=== PATIENT | female | born 1935 | race Caucasian/White ===

== ENCOUNTER → 2017-05-02 | Outpatient (CLI) | payer MEDICARE ==
--- NOTE | 2017-05-02 11:10 | XR ---
EXAMINATION TYPE: XR knee complete RT DATE OF EXAM: 05/02/2017 CLINICAL HISTORY: pain TECHNIQUE: Three views of the right knee are obtained. COMPARISON: None. FINDINGS: There is no acute fracture/dislocation. The tri-compartment joint spaces appear severely narrowed. Meniscal chondral calcinosis noted. Associated spurring. The overlying soft tissue appears unremarkable. IMPRESSION: There is no acute fracture or dislocation.ICD 10 NO FRACTURE, INITIAL EVALUATION
== END | disposition home or self-care (01) ==
LOC: RADXRMAIN 10:38
PROVIDERS: ATTEND Family Medicine
DX: M25.561 Pain in right knee (principal)

== ENCOUNTER 2017-08-31 14:20 | Inpatient (IN) | payer MEDICARE ==
[2017-08-31] MEDS ORDERED: SODIUM CHLORIDE 0.9% 500 ML IV STA (15:02)
--- NOTE | 2017-08-31 15:12 | ED ---
General Adult HPI - General Chief complaint: Arrhythmia/Palpitations Stated complaint: Chest fluttering Time Seen by Provider: 08/31/17 14:30 Source: patient, RN notes reviewed Mode of arrival: wheelchair Limitations: no limitations - History of Present Illness Initial comments: This is an 82-year-old female presents emergency Department with a rapid heart rate. Patient states she's had that before and had some ablation but she doesn' t know what the rhythm was called. Patient states today it was racing so fast she started never had feel like that in the past. Patient denies any chest pain or difficulty breathing or shortness of breath. Patient denies any recent fever chills or cough. Patient denies any excessive intake of caffeine. Patient denies any abdominal pain patient denies nausea vomiting diarrhea. Patient denies headache patient denies numbness weakness. Patient denies any lightheadedness or dizziness. - Related Data Home Medications Medication Instructions Recorded Confirmed Aspirin EC [Ecotrin] 81 mg PO HS 03/09/15 08/31/17 Atorvastatin [Lipitor] 10 mg PO HS 03/09/15 08/31/17 Metoprolol Tartrate 25 mg PO BID 03/09/15 08/31/17 Multivitamin/Iron/Folic Acid 1 tab PO DAILY 03/09/15 08/31/17 [Centrum Complete Multivit Tab] Garlic 1 tab PO DAILY 08/31/17 08/31/17 Allergies Allergy/AdvReac Type Severity Reaction Status Date / Time iodine Allergy Unknown FACE Verified 08/31/17 15:04 SWELLING , RED AND HOT. adhesive tape Allergy Rash/Hives Verified 08/31/17 15:04 Review of Systems ROS Statement: Those systems with pertinent positive or pertinent negative responses have been documented in the HPI. ROS Other: All systems not noted in ROS Statement are negative. Past Medical History Past Medical History: Hyperlipidemia, Hypertension Additional Past Medical History / Comment(s): [place] History of Any Multi-Drug Resistant Organisms: None Reported Past Surgical History: Section, Heart Catheterization With Stent Past Psychological History: No Psychological Hx Reported Smoking Status: Never smoker Past Alcohol Use History: None Reported Past Drug Use History: None Reported General Exam - General Exam Comments Initial Comments: GENERAL: Patient is well-developed and well-nourished. Patient is nontoxic and well- hydrated and is in mild distress. ENT: Neck is soft and supple. No significant lymphadenopathy is noted. Oropharynx is clear. Moist mucous membranes. Neck has full range of motion without eliciting any pain. EYES: The sclera were anicteric and conjunctiva were pink and moist. Extraocular movements were intact and pupils were equal round and reactive to light. Eyelids were unremarkable. PULMONARY: Unlabored respirations. Good breath sounds bilaterally. No audible rales rhonchi or wheezing was noted. CARDIOVASCULAR: Patient's heart rate is tachycardic at about 140 beats a minute and it is irregular ABDOMEN: Soft and nontender with normal bowel sounds. No palpable organomegaly was noted. There is no palpable pulsatile mass. SKIN: Skin is clear with no lesions or rashes and otherwise unremarkable. NEUROLOGIC: Patient is alert and oriented x3. Cranial nerves II through XII are grossly intact. Motor and sensory are also intact. Normal speech, volume and content. Symmetrical smile. MUSCULOSKELETAL: Normal extremities with adequate strength and full range of motion. No lower extremity swelling or edema. No calf tenderness. LYMPHATICS: No significant lymphadenopathy is noted PSYCHIATRIC: Normal psychiatric evaluation. Normal interpersonal interactions appears functionally intact in deals appropriately with others. No signs of depression. No signs of anxiety. Limitations: no limitations Course Vital Signs 08/31/17 14:30 Temperature 97.8 F Pulse Rate 128 H Respiratory 18 Rate Blood Pressure 136/92 O2 Sat by Pulse 99 Oximetry Medical Decision Making - Medical Decision Making EKG shows atrial fibrillation with rapid ventricular response at 119 bpm QRS is 80 QT interval 308 QTC is 433. Patient told me when I initially interviewed her she did not want any blood thinners. Patient is under the impression of blood thinners will potentially kill her. Patient's chest x-ray shows no acute abnormality. I started the patient on Cardizem at 5 mg drip to slow her heart rate down. I spoke with Dr. Nash and admitted the patient and consult to cardiology continued the Cardizem drip on the floor. - Lab Data Result diagrams: 08/31/17 14:49 08/31/17 14:49 Lab Results 08/31/17 08/31/17 08/31/17 Range/Units 14:49 14:49 14:49 WBC 6.3 (3.8-10.6) k/uL RBC 4.77 (3.80-5.40) m/uL Hgb 14.2 (11.4-16.0) gm/dL Hct 42.3 (34.0-46.0) % MCV 88.8 (80.0-100.0) fL MCH 29.8 (25.0-35.0) pg MCHC 33.6 (31.0-37.0) g/dL RDW 12.8 (11.5-15.5) % Plt Count 242 (150-450) k/uL Neutrophils % 61 % Lymphocytes % 30 % Monocytes % 6 % Eosinophils % 1 % Basophils % 0 % Neutrophils # 3.9 (1.3-7.7) k/uL Lymphocytes # 1.9 (1.0-4.8) k/uL Monocytes # 0.4 (0-1.0) k/uL Eosinophils # 0.0 (0-0.7) k/uL Basophils # 0.0 (0-0.2) k/uL PT (9.0-12.0) sec INR (<1.2) APTT (22.0-30.0) sec Sodium 138 (137-145) mmol/L Potassium 4.9 (3.5-5.1) mmol/L Chloride 101 (98-107) mmol/L Carbon Dioxide 26 (22-30) mmol/L Anion Gap 11 mmol/L BUN 8 (7-17) mg/dL Creatinine 0.67 (0.52-1.04) mg/dL Est GFR (CKD-EPI)AfAm >90 (>60 ml/min/1.73 sqM) Est GFR (CKD-EPI)NonAf 83 (>60 ml/min/1.73 sqM) Glucose 88 (74-99) mg/dL Calcium 9.5 (8.4-10.2) mg/dL Magnesium 2.0 (1.6-2.3) mg/dL Total Bilirubin 0.6 (0.2-1.3) mg/dL AST 31 (14-36) U/L ALT 32 (9-52) U/L Alkaline Phosphatase 140 H (38-126) U/L Total Creatine Kinase 71 (30-135) U/L CK-MB (CK-2) 2.1 (0.0-2.4) ng/mL CK-MB (CK-2) Rel Index 3.0 Troponin I <0.012 (0.000-0.034) ng/mL Total Protein 6.6 (6.3-8.2) g/dL Albumin 3.9 (3.5-5.0) g/dL 08/31/17 Range/Units 14:49 WBC (3.8-10.6) k/uL RBC (3.80-5.40) m/uL Hgb (11.4-16.0) gm/dL Hct (34.0-46.0) % MCV (80.0-100.0) fL MCH (25.0-35.0) pg MCHC (31.0-37.0) g/dL RDW (11.5-15.5) % Plt Count (150-450) k/uL Neutrophils % % Lymphocytes % % Monocytes % % Eosinophils % % Basophils % % Neutrophils # (1.3-7.7) k/uL Lymphocytes # (1.0-4.8) k/uL Monocytes # (0-1.0) k/uL Eosinophils # (0-0.7) k/uL Basophils # (0-0.2) k/uL PT 10.3 (9.0-12.0) sec INR 1.1 (<1.2) APTT 22.3 (22.0-30.0) sec Sodium (137-145) mmol/L Potassium (3.5-5.1) mmol/L Chloride (98-107) mmol/L Carbon Dioxide (22-30) mmol/L Anion Gap mmol/L BUN (7-17) mg/dL Creatinine (0.52-1.04) mg/dL Est GFR (CKD-EPI)AfAm (>60 ml/min/1.73 sqM) Est GFR (CKD-EPI)NonAf (>60 ml/min/1.73 sqM) Glucose (74-99) mg/dL Calcium (8.4-10.2) mg/dL Magnesium (1.6-2.3) mg/dL Total Bilirubin (0.2-1.3) mg/dL AST (14-36) U/L ALT (9-52) U/L Alkaline Phosphatase (38-126) U/L Total Creatine Kinase (30-135) U/L CK-MB (CK-2) (0.0-2.4) ng/mL CK-MB (CK-2) Rel Index Troponin I (0.000-0.034) ng/mL Total Protein (6.3-8.2) g/dL Albumin (3.5-5.0) g/dL Critical Care Time Critical Care Time: Yes Total Critical Care Time: 35 Disposition Clinical Impression: Atrial fibrillation with rapid ventricular response Disposition: ADMITTED IP TO THIS HOSP Referrals: Remy Oswald DO [Primary Care Provider] - 1-2 days Time of Disposition: 16:38
[2017-08-31] MEDS: DILTIAZEM 50 MG in SODIUM CHLORIDE 0.9% 40 ML IV SCH (15:22)
[2017-08-31 15:28] LABS: Basophils % (A) 0 %; Eosinophils % (A) 1 %; HCT 42.3 % (34.0-46.0); HGB 14.2 gm/dL (11.4-16.0); Lymphocytes # (A) 1.9 k/uL (1.0-4.8); Lymphocytes % (A) 30 %; MCH 29.8 pg (25.0-35.0); MCHC 33.6 g/dL (31.0-37.0); MCV 88.8 fL (80.0-100.0); Mean Platelet Volume 6.8; Monocytes # (A) 0.4 k/uL (0-1.0); Monocytes % (A) 6 %; Neutrophils # (A) 3.9 k/uL (1.3-7.7); Neutrophils % (A) 61 %; Platelet Count 242 k/uL (150-450); RBC 4.77 m/uL (3.80-5.40); RDW 12.8 % (11.5-15.5); WBC 6.3 k/uL (3.8-10.6)
[2017-08-31 15:32] LABS: INR 1.1 (<1.2); Partial Thromboplastin Time 22.3 sec (22.0-30.0); Prothrombin Time 10.3 sec (9.0-12.0)
[2017-08-31 15:38] LABS: ALT 32 U/L (9-52); AST 31 U/L (14-36); Albumin 3.9 g/dL (3.5-5.0); Alkaline Phosphatase 140 U/L (38-126); Anion Gap 11 mmol/L; Blood Urea Nitrogen 8 mg/dL (7-17); Calcium 9.5 mg/dL (8.4-10.2); Carbon Dioxide 26 mmol/L (22-30); Chloride 101 mmol/L (98-107); Glucose 88 mg/dL (74-99); Potassium 4.9 mmol/L (3.5-5.1); Sodium 138 mmol/L (137-145); Total Bilirubin 0.6 mg/dL (0.2-1.3); Total Protein 6.6 g/dL (6.3-8.2)
[2017-08-31 15:56] LABS: Creatine Kinase 71 U/L (30-135)
[2017-08-31 16:08] LABS: Creatine Kinase MB 2.1 ng/mL (0.0-2.4); Troponin I <0.012 ng/mL (0.000-0.034)
[2017-08-31] MEDS ORDERED: NITROGLYCERIN SL TABS 0.4 MG TAB SUBLINGUAL PRN (16:54)
--- NOTE | 2017-08-31 17:05 | XR ---
EXAMINATION TYPE: XR chest 2V DATE OF EXAM: 08/31/2017 COMPARISON: 09/03/2015 HISTORY: Palpitations TECHNIQUE: Frontal and lateral views of the chest are obtained. FINDINGS: Heart and mediastinum are normal. Lungs are clear. Diaphragm is normal. Bony thorax is int act. There are chest leads. IMPRESSION: Normal chest. No change.
[2017-08-31 22:07] LABS: Creatine Kinase 54 U/L (30-135)
[2017-08-31 22:20] LABS: Creatine Kinase MB 1.5 ng/mL (0.0-2.4); Troponin I <0.012 ng/mL (0.000-0.034)
[2017-09-01] MEDS: DILTIAZEM 50 MG in SODIUM CHLORIDE 0.9% 40 ML IV SCH (01:49)
[2017-09-01 03:51] VITALS: RESP 18
[2017-09-01 04:29] LABS: Cholesterol 99 mg/dL (<200); HDL Cholesterol 47 mg/dL (40-60); LDL Cholesterol,Calculated 41 mg/dL (0-99); Triglycerides 54 mg/dL (<150)
[2017-09-01 04:33] LABS: Creatine Kinase 40 U/L (30-135)
[2017-09-01 04:45] LABS: Troponin I <0.012 ng/mL (0.000-0.034)
[2017-09-01] MEDS: ASPIRIN 325 MG TAB PO SCH (08:25)
[2017-09-01] MEDS ORDERED: METOPROLOL TARTRATE 25 MG TAB PO SCH (09:00)
--- NOTE | 2017-09-01 11:35 | P.CRDCN ---
History of Present Illness Consult date: 09/01/17 History of present illness: This is a pleasant 82-year-old female patient who sees Dr. Christianson in the office on regular basis with a past medical history significant for paroxysmal atrial fibrillation and she underwent ablation according to her about 6 years ago, hypertension, dyslipidemia, presented to the emergency room complaining of heart racing and fluttering. She was sleeping at 2:00 after midnight when she woke up complaining of heart racing and fluttering without any symptoms of chest pain or discomfort but it was associated with shortness of breath. No loss of consciousness and no syncope. When the patient presented to the emergency room she was in atrial fibrillation with heart rate in the 90s. She continues to be in A. fib. The EKG showed atrial fibrillation. The cardiac enzymes were checked and came in to be unremarkable. The chest x-ray did not show any acute abnormalities. I am going to increase the dose of metoprolol to 25 mg by mouth twice a day. The patient need to be on oral anticoagulation because of Rhett-Vasc score is more than 2. I am going to start the patient on Eliquis. 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, past arrythmia/ablation see see ep study note, diverticular disease/past benign colon polyps,palpitations, varicose veins , skin cancer History of Any Multi-Drug Resistant Organisms: None Reported Past Surgical History: Adenoidectomy, Cardiac Ablation, Section, Heart Catheterization With Stent, Tonsillectomy, Tubal Ligation Additional Past Surgical History / Comment(s): tony cataracts, x4, basal cell skin cancer removed,colonoscopy, tony carpal tunnel release Past Anesthesia/Blood Transfusion Reactions: No Reported Reaction Date of Last Stent Placement:: unk Smoking Status: Never smoker - Past Family History Mother Family Medical History: Myocardial Infarction (MD) Additional Family Medical History / Comment(s): pt has 9 siblings almost all of them had afib Father Additional Family Medical History / Comment(s): heart disease Medications and Allergies Home Medications Medication Instructions Recorded Confirmed Type Aspirin EC [Ecotrin] 81 mg PO HS 03/09/15 08/31/17 History Atorvastatin [Lipitor] 10 mg PO HS 03/09/15 08/31/17 History Metoprolol Tartrate 25 mg PO BID 03/09/15 08/31/17 History Multivitamin/Iron/Folic Acid 1 tab PO DAILY 03/09/15 08/31/17 History [Centrum Complete Multivit Tab] Garlic 1 tab PO DAILY 08/31/17 08/31/17 History Allergies Allergy/AdvReac Type Severity Reaction Status Date / Time iodine Allergy Unknown FACE Verified 08/31/17 15:04 SWELLING , RED AND HOT. adhesive tape Allergy Rash/Hives Verified 08/31/17 15:04 Physical Exam Vitals: Vital Signs Temp Pulse Pulse Resp BP BP Pulse Ox 09/01/17 08:00 97.2 F L 80 18 109/65 96 09/01/17 03:51 98.5 F 77 18 103/58 96 09/01/17 03:50 89 16 09/01/17 00:00 98 F 89 16 118/68 97 08/31/17 20:00 97.6 F 88 18 127/67 98 08/31/17 18:57 106 H 16 135/66 96 08/31/17 18:00 107 H 18 138/64 100 08/31/17 17:01 104 H 18 145/73 99 08/31/17 15:32 120 H 18 138/74 99 08/31/17 14:30 97.8 F 128 H 18 136/92 99 Intake and Output 08/31/17 09/01/17 09/01/17 22:59 06:59 14:59 Intake Total 130 50 Balance 130 50 Intake: Intake, IV Titration 5 50 Amount Diltiazem 50 mg In Sodium 5 50 Chloride 0.9% 40 ml @ 5 MG/HR 5 mls/hr IV .Q10H [facility] Rx#:[id number] Oral 125 Other: # Voids 1 2 Weight 84.7 kg - Constitutional General appearance: no acute distress - Respiratory Respiratory: bilateral: CTA - Cardiovascular Rhythm: regular Heart sounds: normal: S1, S2 Results 08/31/17 14:49 08/31/17 14:49 Cardiac Enzymes 08/31/17 08/31/17 08/31/17 Range/Units 14:49 14:49 21:28 AST 31 (14-36) U/L CK-MB (CK-2) 2.1 1.5 (0.0-2.4) ng/mL Troponin I <0.012 <0.012 (0.000-0.034) ng/mL 09/01/17 Range/Units 03:40 AST (14-36) U/L CK-MB (CK-2) 1.0 (0.0-2.4) ng/mL Troponin I <0.012 (0.000-0.034) ng/mL Coagulation 08/31/17 Range/Units 14:49 PT 10.3 (9.0-12.0) sec APTT 22.3 (22.0-30.0) sec Lipids 09/01/17 Range/Units 03:40 Triglycerides 54 (<150) mg/dL Cholesterol 99 (<200) mg/dL HDL Cholesterol 47 (40-60) mg/dL CBC 08/31/17 Range/Units 14:49 WBC 6.3 (3.8-10.6) k/uL RBC 4.77 (3.80-5.40) m/uL Hgb 14.2 (11.4-16.0) gm/dL Hct 42.3 (34.0-46.0) % Plt Count 242 (150-450) k/uL Comprehensive Metabolic Panel 08/31/17 Range/Units 14:49 Sodium 138 (137-145) mmol/L Potassium 4.9 (3.5-5.1) mmol/L Chloride 101 (98-107) mmol/L Carbon Dioxide 26 (22-30) mmol/L BUN 8 (7-17) mg/dL Creatinine 0.67 (0.52-1.04) mg/dL Glucose 88 (74-99) mg/dL Calcium 9.5 (8.4-10.2) mg/dL AST 31 (14-36) U/L ALT 32 (9-52) U/L Alkaline Phosphatase 140 H (38-126) U/L Total Protein 6.6 (6.3-8.2) g/dL Albumin 3.9 (3.5-5.0) g/dL Current Medications Generic Name Dose Route Start Last Admin Trade Name Freq PRN Reason Stop Dose Admin Apixaban 2.5 mg 09/01/17 21:00 Eliquis PO BID KEYONNA Aspirin 325 mg 09/01/17 09:00 09/01/17 08:25 Aspirin PO 325 mg DAILY KEYONNA Administration Atorvastatin Calcium 10 mg 09/01/17 21:00 Lipitor PO HS KEYONNA Metoprolol Tartrate 25 mg 09/01/17 16:00 Lopressor PO TID [facility] Nitroglycerin 0.4 mg 08/31/17 16:54 Nitrostat SUBLINGUAL Q5M PRN Chest Pain Intake and Output 08/31/17 09/01/17 09/01/17 22:59 06:59 14:59 Intake Total 130 50 Balance 130 50 Intake: Intake, IV Titration 5 50 Amount Diltiazem 50 mg In Sodium 5 50 Chloride 0.9% 40 ml @ 5 MG/HR 5 mls/hr IV .Q10H [facility] Rx#:[id number] Oral 125 Other: # Voids 1 2 Weight 84.7 kg 08/31/17 14:49 08/31/17 14:49 Assessment and Plan Assessment: Assessment #1 A. fib with slightly uncontrolled heart rate #2 known paroxysmal atrial fibrillation and status post ablation #3 hypertension #4 dyslipidemia Plan #1 increase the dose of metoprolol #2 start oral anticoagulation #3 obtain an echocardiogram was Doppler #4 follow-up with the patient.
--- NOTE | 2017-09-01 13:38 | ECHOF ---
Referral Reason:a.fib MEASUREMENTS -------- HEIGHT: 160.0 cm WEIGHT: 84.4 kg BP: IVSd: 0.8 cm (0.6 - 1.1) LVIDd: 4.2 cm (3.9 - 5.3) LVPWd: 1.1 cm (0.6 - 1.1) IVSs: 1.9 cm LVIDs: 1.6 cm LVPWs: 1.7 cm Ao Diam: 3.0 cm (2.0 - 3.7) AV Cusp: 1.5 cm (1.5 - 2.6) LA Diam: 3.4 cm (2.7 - 3.8) RAP: 5.00 mmHg RVSP: 21.34 mmHg FINDINGS -------- Atrial fibrillation. This was a technically good study. The left ventricular size is normal. Left ventricular wall thickness is normal. Overall left vent ricular systolic function is normal with, an EF between 55 - 60 %. The right ventricle is normal in size and function. The left atrium is normal in size. The right atrium is normal in size. The aortic valve is trileaflet, and appears structurally normal. No aortic stenosis or regurgitation. The mitral valve leaflets are mildly thickened. Mild mitral regurgitation is present. Mild tricuspid regurgitation present. The right ventricular systolic pressure, as measured by Doppl er, is 21.34mmHg. Pulmonic valve appears structurally normal. The aortic root size is normal. Normal inferior vena cava with normal inspiratory collapse consistent with estimated right atrial pre ssure of 5 mmHg. The pericardium is normal. CONCLUSIONS -------- 1. Atrial fibrillation. 2. This was a technically good study. 3. The left ventricular size is normal. 4. Left ventricular wall thickness is normal. 5. Overall left ventricular systolic function is normal with, an EF between 55 - 60 %. 6. The right ventricle is normal in size and function. 7. The left atrium is normal in size. 8. The right atrium is normal in size. 9. The aortic valve is trileaflet, and appears structurally normal. No aortic stenosis or regurgitati on. 10. The mitral valve leaflets are mildly thickened. 11. Mild mitral regurgitation is present. 12. Mild tricuspid regurgitation present. 13. The right ventricular systolic pressure, as measured by Doppler, is 21.34mmHg. 14. Pulmonic valve appears structurally normal. 15. The aortic root size is normal. 16. Normal inferior vena cava with normal inspiratory collapse consistent with estimated right atrial pressure of 5 mmHg. 17. The pericardium is normal. GRADES 9 12 TUTOR: Sandra Bill RDCS
[2017-09-01] MEDS: METOPROLOL TARTRATE 25 MG TAB PO SCH ×2 (16:31→21:06)
--- NOTE | 2017-09-01 16:40 | P.HPIM ---
History of Present Illness H&P Date: 09/01/17 Chief Complaint: Palpitations fluttering of the heart This is an 82-year-old pleasant female patient of Dr. Christianson and Dr. Oswald. She has underlying history of recurrent atrial fibrillation with prior cardiac ablation for atrial fibrillation 6 years ago, hypertension hyperlipidemia admitted to the hospital secondary to palpitations with rapid heart beat that woke up at 2:00 in the morning, patient denies any chest pain, she does have short windedness at that time. Patient denies any lower extremity edema patient was well the day of her admission until her cardiac palpitations. Patient was subsequently seen in the emergency room with atrial fibrillation, heart rate in 90s, cardiac enzymes were monitored and was unremarkable for any troponin elevation, chest x-ray did not reveal any acute abnormalities, patient was admitted to the hospital with A. fib RVR, and would be started on factor X A inhibition for chronic anti-code anticoagulation. [id number] score of 3. Cardiology has evaluated the patient. Metoprolol increased to 25 mg twice a day. She has lost a sister 2 weeks ago she from colon cancer, she is fearful of any long-term anticoagulation secondary to family history of bleeding complications on Coumadin from the 2 sisters. Review of Systems Constitutional: Reports as per HPI Ears, nose, mouth and throat: Reports as per HPI, Denies ant. neck pain, Denies bleeding gums, Denies dental pain, Denies dysphagia, Denies epistaxis, Denies headache, Denies hoarseness, Denies mouth pain, Denies nasal congestion, Denies nasal discharge, Denies neck fullness/pressure, Denies neck lump, Denies nose pain, Denies odynophagia, Denies post-nasal drip, Denies sinus pain, Denies sinus pressure, Denies swelling in mouth, Denies swelling in throat, Denies sore throat, Denies vertigo, Denies voice changes Cardiovascular: Reports as per HPI, Reports palpitations, Denies chest pain, Denies claudication, Denies decreased exercise tolerance, Denies dyspnea on exertion, Denies edema, Denies high blood pressure, Denies irregular heart beat , Denies leg edema, Denies lightheadedness, Denies orthopnea, Denies paroxysmal nocturnal dyspnea, Denies phlebitis, Denies rapid heart beat, Denies shortness of breath, Denies syncope Respiratory: Reports as per HPI, Denies congestion, Denies cough, Denies cough with sputum, Denies dyspnea, Denies excessive sputum, Denies hemoptysis, Denies home oxygen, Denies pain, Denies pain on inspiration, Denies pleurisy, Denies respiratory infections, Denies sleep apnea, Denies snoring, Denies wheezing Gastrointestinal: Reports as per HPI, Denies abdominal pain, Denies belching, Denies bloating, Denies BRBPR, Denies change in bowel habits, Denies coffee ground emesis, Denies constipation, Denies diarrhea, Denies dyspepsia, Denies early satiety, Denies excessive gas, Denies heartburn, Denies hematemesis, Denies hematochezia, Denies indigestion, Denies jaundice, Denies lactose intolerance, Denies loss of appetite, Denies melena, Denies nausea, Denies vomiting Genitourinary: Reports as per HPI Menstruation: Reports as per HPI, Reports postmenopausal Musculoskeletal: Reports as per HPI, Denies arm numbness/tingling, Denies atrophy, Denies fractures, Denies frequent falls, Denies gait dysfunction, Denies hot joints, Denies leg numbness/tingling, Denies limitation of motion, Denies loss of height, Denies low back pain, Denies morning stiffness, Denies muscle cramps, Denies muscle weakness, Denies myalgias, Denies neck pain, Denies neck stiffness, Denies prior amputations, Denies redness of joints, Denies shooting arm pain, Denies shooting leg pain Integumentary: Reports as per HPI Neurological: Reports as per HPI, Denies aphasia, Denies ataxia, Denies balance difficulties, Denies burning pain, Denies change in mentation, Denies change in smell/taste, Denies change in speech, Denies confusion, Denies convulsions, Denies double vision, Denies gait dysfunction, Denies head injury, Denies headaches, Denies hearing difficulties, Denies lack of coordination, Denies loss of vision, Denies memory loss, Denies migraines, Denies motor disturbance, Denies numbness, Denies paralysis, Denies paresthesias, Denies seizures, Denies sensory deficit, Denies spasticity, Denies syncope, Denies tic, Denies tingling , Denies transient paralysis, Denies tremors, Denies vertigo, Denies weakness, Denies visual changes Psychiatric: Reports as per HPI, Denies anhedonia, Denies anxiety, Denies anxiety attacks, Denies change in appetite, Denies change in libido, Denies change in sleep habits, Denies confusion, Denies depression, Denies difficulty concentrating, Denies disorientation, Denies hallucinations, Denies hopelessness , Denies hypersomnia, Denies insomnia, Denies irritability, Denies memory loss, Denies mood swings, Denies paranoia, Denies sadness/tearfulness, Denies sleep disturbances, Denies suicidal ideation Past Medical History Past Medical History: Hyperlipidemia, Hypertension, Osteoarthritis (OA) Additional Past Medical History / Comment(s): [place] [employer] even w/ hearing aids, uti- ecoli 2013, 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, past arrythmia/ablation see see ep study note, diverticular disease/past benign colon polyps,palpitations, varicose veins , skin cancer History of Any Multi-Drug Resistant Organisms: None Reported Past Surgical History: Adenoidectomy, Cardiac Ablation, Section, Heart Catheterization With Stent, Tonsillectomy, Tubal Ligation Additional Past Surgical History / Comment(s): tony cataracts, x4, basal cell skin cancer removed,colonoscopy, tony carpal tunnel release Past Anesthesia/Blood Transfusion Reactions: No Reported Reaction Date of Last Stent Placement:: unk Smoking Status: Never smoker - Past Family History Mother Family Medical History: Myocardial Infarction ([place]) Additional Family Medical History / Comment(s): pt has 9 siblings almost all of them had afib Father Family Medical History: Coronary Artery Disease (CAD) Additional Family Medical History / Comment(s): heart disease Sister(s) Family Medical History: Cancer (:colon) Medications and Allergies Home Medications Medication Instructions Recorded Confirmed Type Aspirin EC [Ecotrin] 81 mg PO HS 03/09/15 08/31/17 History Atorvastatin [Lipitor] 10 mg PO HS 03/09/15 08/31/17 History Metoprolol Tartrate 25 mg PO BID 03/09/15 08/31/17 History Multivitamin/Iron/Folic Acid 1 tab PO DAILY 03/09/15 08/31/17 History [Centrum Complete Multivit Tab] Garlic 1 tab PO DAILY 08/31/17 08/31/17 History Allergies Allergy/AdvReac Type Severity Reaction Status Date / Time iodine Allergy Unknown FACE Verified 08/31/17 15:04 SWELLING , RED AND HOT. adhesive tape Allergy Rash/Hives Verified 08/31/17 15:04 Physical Exam Vitals: Vital Signs Temp Pulse Pulse Resp BP BP Pulse Ox 09/01/17 08:00 97.2 F L 80 18 109/65 96 09/01/17 03:51 98.5 F 77 18 103/58 96 09/01/17 03:50 89 16 09/01/17 00:00 98 F 89 16 118/68 97 08/31/17 20:00 97.6 F 88 18 127/67 98 08/31/17 18:57 106 H 16 135/66 96 08/31/17 18:00 107 H 18 138/64 100 08/31/17 17:01 104 H 18 145/73 99 08/31/17 15:32 120 H 18 138/74 99 08/31/17 14:30 97.8 F 128 H 18 136/92 99 Intake and Output 08/31/17 09/01/17 09/01/17 22:59 06:59 14:59 Intake Total 130 50 360 Balance 130 50 360 Intake: Intake, IV Titration 5 50 Amount Diltiazem 50 mg In Sodium 5 50 Chloride 0.9% 40 ml @ 5 MG/HR 5 mls/hr IV .Q10H [facility] Rx#:[id number] Oral 125 360 Other: # Voids 1 2 2 Weight 84.7 kg - Constitutional General appearance: average body habitus, cooperative, no acute distress, obese - EENT Eyes: anicteric sclerae, PERRLA, dentition normal ENT: NA/AT, normal oropharynx - Neck Neck: normal ROM - Respiratory Respiratory: bilateral: CTA, negative: diminished, dullness - Cardiovascular Rhythm: regularly irregular Heart sounds: normal: S1, S2 Abnormal Heart Sounds: no systolic murmur, no diastolic murmur, no rub, no S3 Gallop, no S4 Gallop, no click, no other - Gastrointestinal General gastrointestinal: normal bowel sounds, soft - Integumentary Integumentary: decreased turgor, normal - Neurologic Neurologic: CNII-XII intact - Musculoskeletal Musculoskeletal: gait normal - Psychiatric Psychiatric: A&O x's 3, appropriate affect, intact judgment & insight Results CBC & Chem 7: 09/02/17 06:17 09/02/17 06:17 Labs: Abnormal Lab Results - Last 24 Hours (Table) 08/31/17 Range/Units 14:49 Alkaline Phosphatase 140 H (38-126) U/L Laboratory Results WBC 6.3 k/uL (3.8-10.6) 08/31/17 14:49 RBC 4.77 m/uL (3.80-5.40) 08/31/17 14:49 Hgb 14.2 gm/dL (11.4-16.0) 08/31/17 14:49 Hct 42.3 % (34.0-46.0) 08/31/17 14:49 MCV 88.8 fL (80.0-100.0) 08/31/17 14:49 MCH 29.8 pg (25.0-35.0) 08/31/17 14:49 MCHC 33.6 g/dL (31.0-37.0) 08/31/17 14:49 RDW 12.8 % (11.5-15.5) 08/31/17 14:49 Plt Count 242 k/uL (150-450) 08/31/17 14:49 Neutrophils % 61 % 08/31/17 14:49 Lymphocytes % 30 % 08/31/17 14:49 Monocytes % 6 % 08/31/17 14:49 Eosinophils % 1 % 08/31/17 14:49 Basophils % 0 % 08/31/17 14:49 Neutrophils # 3.9 k/uL (1.3-7.7) 08/31/17 14:49 Lymphocytes # 1.9 k/uL (1.0-4.8) 08/31/17 14:49 Monocytes # 0.4 k/uL (0-1.0) 08/31/17 14:49 Eosinophils # 0.0 k/uL (0-0.7) 08/31/17 14:49 Basophils # 0.0 k/uL (0-0.2) 08/31/17 14:49 PT 10.3 sec (9.0-12.0) 08/31/17 14:49 INR 1.1 (<1.2) 08/31/17 14:49 APTT 22.3 sec (22.0-30.0) 08/31/17 14:49 Sodium 138 mmol/L (137-145) 08/31/17 14:49 Potassium 4.9 mmol/L (3.5-5.1) 08/31/17 14:49 Chloride 101 mmol/L (98-107) 08/31/17 14:49 Carbon Dioxide 26 mmol/L (22-30) 08/31/17 14:49 Anion Gap 11 mmol/L 08/31/17 14:49 BUN 8 mg/dL (7-17) 08/31/17 14:49 Creatinine 0.67 mg/dL (0.52-1.04) 08/31/17 14:49 Est GFR (CKD-EPI)AfAm >90 (>60 ml/min/1.73 sqM) 08/31/17 14:49 Est GFR (CKD-EPI)NonAf 83 (>60 ml/min/1.73 sqM) 08/31/17 14:49 Glucose 88 mg/dL (74-99) 08/31/17 14:49 Calcium 9.5 mg/dL (8.4-10.2) 08/31/17 14:49 Magnesium 2.0 mg/dL (1.6-2.3) 08/31/17 14:49 Total Bilirubin 0.6 mg/dL (0.2-1.3) 08/31/17 14:49 AST 31 U/L (14-36) 08/31/17 14:49 ALT 32 U/L (9-52) 08/31/17 14:49 Alkaline Phosphatase 140 U/L (38-126) H 08/31/17 14:49 Total Creatine Kinase 40 U/L (30-135) 09/01/17 03:40 CK-MB (CK-2) 1.0 ng/mL (0.0-2.4) 09/01/17 03:40 CK-MB (CK-2) Rel Index 2.5 09/01/17 03:40 Troponin I <0.012 ng/mL (0.000-0.034) 09/01/17 03:40 Total Protein 6.6 g/dL (6.3-8.2) 08/31/17 14:49 Albumin 3.9 g/dL (3.5-5.0) 08/31/17 14:49 Triglycerides 54 mg/dL (<150) 09/01/17 03:40 Cholesterol 99 mg/dL (<200) 09/01/17 03:40 LDL Cholesterol, Calc 41 mg/dL (0-99) 09/01/17 03:40 HDL Cholesterol 47 mg/dL (40-60) 09/01/17 03:40 Thrombosis Risk Factor Assmnt - Choose All That Apply Each Factor Represents 1 point: Swollen legs (current) Each Risk Factor Represents 3 Points: Age 75 years or older Thrombosis Risk Factor Assessment Total Risk Factor Score: 4 Thrombosis Risk Factor Assessment Level: Moderate Risk Assessment and Plan Plan: 1. Atrial fibrillation with rapid ventricular rate, known history of paroxysmal atrial fibrillation with prior history of ablation. Patient currently would be anticoagulated using eliquis, metoprolol has been increased by cardiology at 25 mg twice a day, echocardiogram was requested, continue aspirin 81 mg daily. No current contraindication for the use of eliquis 2. Hypertension, currently controlled on Lopressor 25 mg 3 times a day 3. Hyperlipidemia on 10 mg Lipitor at bedtime 4. Osteoarthritis is not on any opiates from home 5. DVT prophylaxis on maintenance chronic anticoagulation using Ahlquist 6. GI prophylaxis Pepcid 7. History of colonoscopy 2 years ago and was normal with 10 year recommendation
[2017-09-01] MEDS ORDERED: ATORVASTATIN 10 MG TAB PO SCH (21:00)
[2017-09-01] MEDS: APIXABAN 2.5 MG TABLET PO SCH (21:06)
[2017-09-01] MEDS: FAMOTIDINE 20 MG TAB PO SCH (21:06)
[2017-09-02 06:47] LABS: Basophils % (A) 0 %; Eosinophils # (A) 0.1 k/uL (0-0.7); Eosinophils % (A) 2 %; HCT 40.1 % (34.0-46.0); Lymphocytes # (A) 1.9 k/uL (1.0-4.8); Lymphocytes % (A) 39 %; MCH 29.2 pg (25.0-35.0); MCHC 32.3 g/dL (31.0-37.0); MCV 90.4 fL (80.0-100.0); Mean Platelet Volume 6.7; Monocytes # (A) 0.4 k/uL (0-1.0); Monocytes % (A) 8 %; Neutrophils # (A) 2.5 k/uL (1.3-7.7); Neutrophils % (A) 50 %; Platelet Count 209 k/uL (150-450); RBC 4.44 m/uL (3.80-5.40); RDW 13.1 % (11.5-15.5)
[2017-09-02 07:23] LABS: Anion Gap 8 mmol/L; Blood Urea Nitrogen 10 mg/dL (7-17); Calcium 8.6 mg/dL (8.4-10.2); Carbon Dioxide 27 mmol/L (22-30); Chloride 107 mmol/L (98-107); Glucose 89 mg/dL (74-99); Potassium 4.3 mmol/L (3.5-5.1); Sodium 142 mmol/L (137-145)
[2017-09-02] MEDS: APIXABAN 2.5 MG TABLET PO SCH (08:28)
[2017-09-02] MEDS: FAMOTIDINE 20 MG TAB PO SCH (08:28)
[2017-09-02] MEDS: ASPIRIN 325 MG TAB PO SCH (08:28)
[2017-09-02] MEDS: METOPROLOL TARTRATE 25 MG TAB PO SCH ×2 (08:28→15:36)
--- NOTE | 2017-09-02 14:26 | P.PN ---
Subjective Progress Note Date: 09/02/17 Principal diagnosis: paroxysmal atrial fibrillation This is a pleasant 82-year-old female patient who sees Dr. Christianson in the office on regular basis with a past medical history significant for paroxysmal atrial fibrillation and she underwent ablation according to her about 6 years ago, hypertension, dyslipidemia, presented to the emergency room complaining of heart racing and fluttering. She was sleeping at 2:00 after midnight when she woke up complaining of heart racing and fluttering without any symptoms of chest pain or discomfort but it was associated with shortness of breath. No loss of consciousness and no syncope. When the patient presented to the emergency room she was in atrial fibrillation with heart rate in the 90s. She continues to be in A. fib with relatively controlled heart rate. She underwent an echocardiogram and that revealed normal LV function. I'll follow-up with the patient today, overall she is doing good and she is asymptomatic. She continues to be in A. fib with controlled heart rate. She was started on oral anticoagulation yesterday. Objective - Vital Signs Vital signs: Vital Signs Temp 98.8 F 09/02/17 04:00 Pulse 79 09/02/17 04:00 Resp 18 09/02/17 04:00 BP 102/78 09/02/17 04:00 Pulse Ox 95 09/02/17 04:00 Intake & Output 09/01/17 09/02/17 09/02/17 18:59 06:59 18:59 Intake Total 720 125 360 Balance 720 125 360 Weight 84.9 kg Intake: Oral 720 125 360 Other: # Voids 2 2 2 - Constitutional General appearance: Present: no acute distress - Respiratory Respiratory: bilateral: CTA - Cardiovascular Rhythm: irregularly irregular - Labs CBC & Chem 7: 09/02/17 06:17 09/02/17 06:17 Assessment and Plan Assessment: Assessment #1 A. fib with slightly uncontrolled heart rate #2 known paroxysmal atrial fibrillation and status post ablation #3 hypertension #4 dyslipidemia Plan #1 continue the current dose of metoprolol. #2 continue oral anticoagulation #3 from the cardiovascular standpoint overview she can be discharged home.
--- NOTE | 2017-09-02 16:04 | P.DS ---
Providers Date of admission: 08/31/17 16:54 Attending physician: Joy Nash Consults: 08/31/17 16:54 Consult Physician Urgent Consulting Provider: [facility] Consult Reason/Comments: A. fib with rapid ventricular response Do you want consulting provider notified?: Yes Primary care physician: Remy Oswald [facility] Course: This is an 82-year-old pleasant female patient of Dr. Christianson and Dr. Oswald. She has underlying history of recurrent atrial fibrillation with prior cardiac ablation for atrial fibrillation 6 years ago, hypertension hyperlipidemia admitted to the hospital secondary to palpitations with rapid heart beat that woke up at 2:00 in the morning, patient denies any chest pain, she does have short windedness at that time. Patient denies any lower extremity edema patient was well the day of her admission until her cardiac palpitations. Patient was subsequently seen in the emergency room with atrial fibrillation, heart rate in 90s, cardiac enzymes were monitored and was unremarkable for any troponin elevation, chest x-ray did not reveal any acute abnormalities, patient was admitted to the hospital with A. fib RVR, and would be started on factor X A inhibition for chronic anti-code anticoagulation. [id number] score of 3. Cardiology has evaluated the patient. Metoprolol increased to 25 mg twice a day. She has lost a sister 2 weeks ago she from colon cancer, she is fearful of any long-term anticoagulation secondary to family history of bleeding complications on Coumadin from the 2 sisters. 09/02: Patient remains in atrial fibrillation rate controlled, patient remains to be asymptomatic, she seems to be more reported but no palpitations no chest pain no lightheadedness no dizziness. Heart rate is controlled between 80-90, patient was seen by cardiology and was deemed stable for discharge, patient is to increase her metoprolol to 25 minutes, 3 times a day, new anticoagulation with Eliquis, TSH is normal, troponins are negative follow-up with PCP in [address] christianson her primary grappler in 1-2 week Discharge Medication List Aspirin EC [Ecotrin Low Dose] 81 mg PO HS 03/09/15 [History] Atorvastatin [Lipitor] 10 mg PO HS 03/09/15 [History] Multivitamin/Iron/Folic Acid [Centrum Complete Multivit Tab] 1 tab PO DAILY 07/18 [History] Garlic 1 tab PO DAILY 08/31/17 [History] Apixaban [Eliquis] 2.5 mg PO BID #60 tablet 09/02/17 [Rx] Metoprolol Tartrate [Lopressor] 25 mg PO TID tab 09/02/17 [Rx] Patient Condition at Discharge: Good Plan - Discharge Summary Discharge Rx Participant: No New Discharge Prescriptions: New Apixaban [Eliquis] 2.5 mg PO BID #60 tablet Metoprolol Tartrate [Lopressor] 25 mg PO TID tab Continue Atorvastatin [Lipitor] 10 mg PO HS Aspirin EC [Ecotrin Low Dose] 81 mg PO HS Multivitamin/Iron/Folic Acid [Centrum Complete Multivit Tab] 1 tab PO DAILY Garlic 1 tab PO DAILY Discontinued Metoprolol Tartrate 25 mg PO BID Discharge Medication List Aspirin EC [Ecotrin Low Dose] 81 mg PO HS 03/09/15 [History] Atorvastatin [Lipitor] 10 mg PO HS 03/09/15 [History] Multivitamin/Iron/Folic Acid [Centrum Complete Multivit Tab] 1 tab PO DAILY 07/18 [History] Garlic 1 tab PO DAILY 08/31/17 [History] Apixaban [Eliquis] 2.5 mg PO BID #60 tablet 09/02/17 [Rx] Metoprolol Tartrate [Lopressor] 25 mg PO TID tab 09/02/17 [Rx] Follow up Appointment(s)/Referral(s): Damion Christianson MD [STAFF PHYSICIAN] - 1 Week Remy Oswald DO [Primary Care Provider] - 1-2 days
[2017-09-02 18:41] VITALS: BP 113/63; PULSE 80; TEMP 96.4
== END 2017-09-02 20:34 | disposition home or self-care (01) | DRG 310 ==
LOC: EC 14:20 → 6SEL 16:54
PROVIDERS: ADMIT Internal Medicine; ATTEND Internal Medicine
DX: I48.0 Paroxysmal atrial fibrillation (principal); E78.5 Hyperlipidemia, unspecified; I10 Essential (primary) hypertension; M19.90 Unspecified osteoarthritis, unspecified site; Z79.01 Long term (current) use of anticoagulants; Z79.82 Long term (current) use of aspirin; Z79.899 Other long term (current) drug therapy; Z80.0 Family history of malignant neoplasm of digestive organs; Z82.49 Family history of ischemic heart disease and other diseases of the circulatory system; Z85.828 Personal history of other malignant neoplasm of skin; Z86.010 Personal history of colon polyps; Z88.3 Allergy status to other anti-infective agents; Z88.8 Allergy status to other drugs, medicaments and biological substances; H91.90 Unspecified hearing loss, unspecified ear; Z97.4 Presence of external hearing-aid; Z98.42 Cataract extraction status, left eye; Z98.41 Cataract extraction status, right eye; Z95.5 Presence of coronary angioplasty implant and graft; Z98.51 Tubal ligation status
CPT/HCPCS: 36415; 71046; 80048; 80053; 80061; 82550; 82553; 83735; 84443; 84484; 85025; 85610; 85730; 93005; 93306; 96365; 96366; 99291

== ENCOUNTER 2017-09-05 03:10 | Emergency (ER) | payer MEDICARE ==
[2017-09-05 03:19] VITALS: RESP 18; TEMP 97.7
[2017-09-05] MEDS ORDERED: ASPIRIN 81 MG PO STA (03:45)
--- NOTE | 2017-09-05 03:48 | ED ---
Arrhythmia/Palpitations HPI - General Chief Complaint: Chest Pain Stated Complaint: afib Time Seen by Provider: 09/05/17 03:35 Source: patient Mode of arrival: ambulatory Limitations: no limitations - History of Present Illness Initial Comments: This patient is an 82-year-old woman who presents to be evaluated for symptoms that she woke from sleep with this morning. The patient states she was awakened with feeling like her chest was pounding, shortness of breath, and some anxiety. She denied anjali chest pain. She had a similar episode in the past week, was seen here and diagnosed with new onset atrial fibrillation. MD Complaint: palpitations -: minutes(s) Context: awoke with symptoms Arrhythmia History: atrial fibrillation Associated Symptoms: shortness of breath, anxiety - Related Data Home Medications Medication Instructions Recorded Confirmed Aspirin EC [Ecotrin Low Dose] 81 mg PO HS 03/09/15 09/05/17 Atorvastatin [Lipitor] 10 mg PO HS 03/09/15 09/05/17 Multivitamin/Iron/Folic Acid 1 tab PO DAILY 03/09/15 09/05/17 [Centrum Complete Multivit Tab] Garlic 1 tab PO DAILY 08/31/17 09/05/17 Previous Rx's Medication Instructions Recorded Apixaban [Eliquis] 2.5 mg PO BID #60 tablet 09/02/17 Metoprolol Tartrate [Lopressor] 25 mg PO TID tab 09/02/17 Azithromycin [Zithromax Z-pack] 250 mg PO DIRECTED #6 tab 09/05/17 Allergies Allergy/AdvReac Type Severity Reaction Status Date / Time iodine Allergy Unknown FACE Verified 09/05/17 03:19 SWELLING , RED AND HOT. adhesive tape Allergy Rash/Hives Verified 09/05/17 03:19 Sulfa (Sulfonamide Allergy Rash/Hives Verified 09/05/17 06:25 Antibiotics) Review of Systems ROS Statement: Those systems with pertinent positive or pertinent negative responses have been documented in the HPI. ROS Other: All systems not noted in ROS Statement are negative. Constitutional: Denies: fever, chills Respiratory: Reports: dyspnea. Denies: cough, wheezes, hemoptysis Cardiovascular: Reports: palpitations. 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, past arrythmia/ablation see see ep study note, diverticular disease/past benign colon polyps,palpitations, varicose veins , skin cancer History of Any Multi-Drug Resistant Organisms: None Reported Past Surgical History: Adenoidectomy, Cardiac Ablation, Section, Heart Catheterization With Stent, Tonsillectomy, Tubal Ligation Additional Past Surgical History / Comment(s): tony cataracts, x4, basal cell skin cancer removed,colonoscopy, tony carpal tunnel release Past Anesthesia/Blood Transfusion Reactions: No Reported Reaction Date of Last Stent Placement:: unk Past Psychological History: No Psychological Hx Reported Smoking Status: Never smoker Past Alcohol Use History: None Reported Past Drug Use History: None Reported - Past Family History Mother Family Medical History: Myocardial Infarction (NM) Additional Family Medical History / Comment(s): pt has 9 siblings almost all of them had afib Father Family Medical History: Coronary Artery Disease (CAD) Additional Family Medical History / Comment(s): heart disease Sister(s) Family Medical History: Cancer (:colon) General Exam Limitations: no limitations General appearance: alert, in no apparent distress Head exam: Present: atraumatic, normocephalic Eye exam: Present: normal appearance ENT exam: Present: normal oropharynx Neck exam: Present: normal inspection Respiratory exam: Present: normal lung sounds bilaterally. Absent: respiratory distress, wheezes, rales, rhonchi, stridor Cardiovascular Exam: Present: regular rate, normal rhythm, normal heart sounds. Absent: systolic murmur, diastolic murmur, rubs, gallop GI/Abdominal exam: Present: soft. Absent: distended, tenderness, guarding, rebound, rigid, mass Extremities exam: Present: normal inspection, normal capillary refill. Absent: pedal edema, calf tenderness Back exam: Present: normal inspection Neurological exam: Present: alert Skin exam: Present: warm, dry, intact, normal color. Absent: rash Course Vital Signs 09/05/17 09/05/17 09/05/17 03:17 05:13 05:45 Temperature 97.7 F Pulse Rate 75 65 67 Respiratory 18 18 18 Rate Blood Pressure 154/73 164/71 176/77 O2 Sat by Pulse 97 100 100 Oximetry 09/05/17 09/05/17 06:10 06:22 Temperature Pulse Rate 70 Respiratory 18 Rate Blood Pressure 152/67 O2 Sat by Pulse 97 99 Oximetry EKG Findings - EKG Results: EKG: interpreted by VINAY, sinus rhythm (Rate approximately 67 bpm), normal axis , normal ST/T Medical Decision Making - Medical Decision Making Patient is an 82-year-old woman who woke with palpitations, dyspnea and anxiety. The workup does reveal possible right-sided infiltrate and in further history patient has had some cough recently. Discussed admission for treatment of early infiltrate versus outpatient course of medication and patient elects to try course of outpatient medicine with close follow-up. We discussed return parameters as well. - Lab Data Result diagrams: 09/05/17 03:30 09/05/17 03:30 Lab Results 09/05/17 09/05/17 09/05/17 Range/Units 03:30 03:30 03:30 WBC 6.0 (3.8-10.6) k/uL RBC 4.39 (3.80-5.40) m/uL Hgb 12.6 (11.4-16.0) gm/dL Hct 38.8 (34.0-46.0) % MCV 88.5 (80.0-100.0) fL MCH 28.8 (25.0-35.0) pg MCHC 32.5 (31.0-37.0) g/dL RDW 13.3 (11.5-15.5) % Plt Count 184 (150-450) k/uL Neutrophils % 58 % Lymphocytes % 31 % Monocytes % 7 % Eosinophils % 2 % Basophils % 0 % Neutrophils # 3.5 (1.3-7.7) k/uL Lymphocytes # 1.9 (1.0-4.8) k/uL Monocytes # 0.5 (0-1.0) k/uL Eosinophils # 0.1 (0-0.7) k/uL Basophils # 0.0 (0-0.2) k/uL PT (9.0-12.0) sec INR (<1.2) APTT (22.0-30.0) sec Sodium 139 (137-145) mmol/L Potassium 4.5 (3.5-5.1) mmol/L Chloride 103 (98-107) mmol/L Carbon Dioxide 29 (22-30) mmol/L Anion Gap 7 mmol/L BUN 13 (7-17) mg/dL Creatinine 0.60 (0.52-1.04) mg/dL Est GFR (CKD-EPI)AfAm >90 (>60 ml/min/1.73 sqM) Est GFR (CKD-EPI)NonAf 86 (>60 ml/min/1.73 sqM) Glucose 88 (74-99) mg/dL Calcium 9.4 (8.4-10.2) mg/dL Magnesium 2.0 (1.6-2.3) mg/dL Total Bilirubin 0.3 (0.2-1.3) mg/dL AST 23 (14-36) U/L ALT 33 (9-52) U/L Alkaline Phosphatase 105 (38-126) U/L Total Creatine Kinase 34 (30-135) U/L CK-MB (CK-2) 0.7 (0.0-2.4) ng/mL CK-MB (CK-2) Rel Index 2.1 Troponin I <0.012 (0.000-0.034) ng/mL Total Protein 6.1 L (6.3-8.2) g/dL Albumin 3.6 (3.5-5.0) g/dL 09/05/17 Range/Units 03:30 WBC (3.8-10.6) k/uL RBC (3.80-5.40) m/uL Hgb (11.4-16.0) gm/dL Hct (34.0-46.0) % MCV (80.0-100.0) fL MCH (25.0-35.0) pg MCHC (31.0-37.0) g/dL RDW (11.5-15.5) % Plt Count (150-450) k/uL Neutrophils % % Lymphocytes % % Monocytes % % Eosinophils % % Basophils % % Neutrophils # (1.3-7.7) k/uL Lymphocytes # (1.0-4.8) k/uL Monocytes # (0-1.0) k/uL Eosinophils # (0-0.7) k/uL Basophils # (0-0.2) k/uL PT 10.2 (9.0-12.0) sec INR 1.0 (<1.2) APTT 22.9 (22.0-30.0) sec Sodium (137-145) mmol/L Potassium (3.5-5.1) mmol/L Chloride (98-107) mmol/L Carbon Dioxide (22-30) mmol/L Anion Gap mmol/L BUN (7-17) mg/dL Creatinine (0.52-1.04) mg/dL Est GFR (CKD-EPI)AfAm (>60 ml/min/1.73 sqM) Est GFR (CKD-EPI)NonAf (>60 ml/min/1.73 sqM) Glucose (74-99) mg/dL Calcium (8.4-10.2) mg/dL Magnesium (1.6-2.3) mg/dL Total Bilirubin (0.2-1.3) mg/dL AST (14-36) U/L ALT (9-52) U/L Alkaline Phosphatase (38-126) U/L Total Creatine Kinase (30-135) U/L CK-MB (CK-2) (0.0-2.4) ng/mL CK-MB (CK-2) Rel Index Troponin I (0.000-0.034) ng/mL Total Protein (6.3-8.2) g/dL Albumin (3.5-5.0) g/dL Disposition Clinical Impression: Pneumonia Disposition: HOME SELF-CARE Condition: Fair Instructions: Pneumonia (ED) Prescriptions: Azithromycin [Zithromax Z-pack] 250 mg PO DIRECTED #6 tab Is patient prescribed a controlled substance at d/c from ED?: No Referrals: Remy Oswald DO [Primary Care Provider] - 1-2 days
[2017-09-05 03:53] LABS: Basophils % (A) 0 %; Eosinophils # (A) 0.1 k/uL (0-0.7); Eosinophils % (A) 2 %; HCT 38.8 % (34.0-46.0); HGB 12.6 gm/dL (11.4-16.0); Lymphocytes # (A) 1.9 k/uL (1.0-4.8); Lymphocytes % (A) 31 %; MCH 28.8 pg (25.0-35.0); MCHC 32.5 g/dL (31.0-37.0); MCV 88.5 fL (80.0-100.0); Monocytes # (A) 0.5 k/uL (0-1.0); Monocytes % (A) 7 %; Neutrophils # (A) 3.5 k/uL (1.3-7.7); Neutrophils % (A) 58 %; Platelet Count 184 k/uL (150-450); RBC 4.39 m/uL (3.80-5.40); RDW 13.3 % (11.5-15.5)
[2017-09-05 04:01] LABS: Partial Thromboplastin Time 22.9 sec (22.0-30.0); Prothrombin Time 10.2 sec (9.0-12.0)
[2017-09-05 04:06] LABS: ALT 33 U/L (9-52); AST 23 U/L (14-36); Albumin 3.6 g/dL (3.5-5.0); Alkaline Phosphatase 105 U/L (38-126); Anion Gap 7 mmol/L; Blood Urea Nitrogen 13 mg/dL (7-17); Calcium 9.4 mg/dL (8.4-10.2); Carbon Dioxide 29 mmol/L (22-30); Chloride 103 mmol/L (98-107); Glucose 88 mg/dL (74-99); Potassium 4.5 mmol/L (3.5-5.1); Sodium 139 mmol/L (137-145); Total Bilirubin 0.3 mg/dL (0.2-1.3); Total Protein 6.1 g/dL (6.3-8.2)
[2017-09-05 04:10] LABS: Creatine Kinase 34 U/L (30-135)
--- NOTE | 2017-09-05 04:12 | XR ---
EXAMINATION TYPE: XR chest 1V portable DATE OF EXAM: 09/05/2017 COMPARISON: 08/31/2017 HISTORY: Chest pain TECHNIQUE: Single frontal view of the chest is obtained. FINDINGS: There is coarse interstitial density in the right lung. There is no heart failure. Left fely ng is clear. There is no pleural effusion. There are chest leads. Bony thorax is intact. IMPRESSION: New mild interstitial infiltrate in the right lung. No heart failure.
[2017-09-05 04:20] LABS: Creatine Kinase MB 0.7 ng/mL (0.0-2.4)
[2017-09-05 04:24] LABS: Troponin I <0.012 ng/mL (0.000-0.034)
[2017-09-05] MEDS ORDERED: AZITHROMYCIN 500 MG TAB PO STA (06:11)
[2017-09-05] MEDS ORDERED: cefTRIAXone IN SWFI 1,000 MG/10 ML SYRINGE IVP STA (06:11)
[2017-09-05 06:24] VITALS: BP 152/67; PULSE 70
== END 2017-09-05 06:41 | disposition home or self-care (01) ==
LOC: EC 03:10
DX: J18.9 Pneumonia, unspecified organism (principal); F41.9 Anxiety disorder, unspecified; R00.2 Palpitations; E78.5 Hyperlipidemia, unspecified; I10 Essential (primary) hypertension; M19.90 Unspecified osteoarthritis, unspecified site; H91.90 Unspecified hearing loss, unspecified ear; Z79.82 Long term (current) use of aspirin; Z79.899 Other long term (current) drug therapy; Z88.2 Allergy status to sulfonamides; Z91.048 Other nonmedicinal substance allergy status; Z85.828 Personal history of other malignant neoplasm of skin; Z95.5 Presence of coronary angioplasty implant and graft; Z98.890 Other specified postprocedural states; Z82.49 Family history of ischemic heart disease and other diseases of the circulatory system
CPT/HCPCS: 36415; 93005; 80053; 82550; 82553; 83735; 84484; 85025; 85610; 85730; 71045; 99285; 96374; J0696

== ENCOUNTER → 2017-09-27 | Outpatient (CLI) | payer MEDICARE ==
--- NOTE | 2017-09-27 10:41 | XR ---
EXAMINATION TYPE: XR chest 2V DATE OF EXAM: 09/27/2017 COMPARISON: 09/05/2017 HISTORY: Shortness of breath TECHNIQUE: Frontal and lateral views of the chest are obtained. FINDINGS: Scattered senescent parenchymal changes noted. Hyperinflation compatible with COPD. No evidence for infiltrate. No evidence for atelectasis. Heart size is stable. Mediastinal structures are stable and grossly unremarkable. No evidence for hilar prominence. Degenerative changes dorsal spine. IMPRESSION: 1. No evidence for acute pulmonary disease.
== END | disposition home or self-care (01) ==
LOC: RADXRMAIN 10:09
PROVIDERS: ATTEND Family Medicine
DX: J15.9 Unspecified bacterial pneumonia (principal)
CPT/HCPCS: 71046

== ENCOUNTER 2019-04-28 13:32 | Emergency (ER) | payer MEDICARE ==
[2019-04-28 13:44] VITALS: PULSE 85; RESP 18
[2019-04-28] MEDS ORDERED: ONDANSETRON 4 MG/2 ML VIAL IVP STA (14:45)
[2019-04-28] MEDS ORDERED: SODIUM CHLORIDE 0.9% 1,000 ML IV STA ×2 (14:45)
[2019-04-28] MEDS ORDERED: KETOROLAC 30 MG/ML 1 ML VIAL IVP STA (14:45)
[2019-04-28] MEDS ORDERED: MORPHINE SULFATE 4 MG/ML SYRINGE IV STA (14:45)
--- NOTE | 2019-04-28 14:51 | ED ---
Abdominal Pain HPI - General Chief Complaint: Abdominal Pain Stated Complaint: abd pain Time Seen by Provider: 04/28/19 14:10 Source: patient, family, RN notes reviewed, old records reviewed Mode of arrival: wheelchair Limitations: no limitations - History of Present Illness Initial Comments: This patient's a pleasant 84-year-old female who presents the emergency department today for evaluation for left-sided lower abdominal pain starting at 12. Patient's symptoms seem to be radiating towards her left flank area. Patient states she's had dysuria. She did have normal stool today. - Related Data Home Medications Medication Instructions Recorded Confirmed Aspirin EC [Ecotrin Low Dose] 81 mg PO HS 03/09/15 09/05/17 Atorvastatin [Lipitor] 10 mg PO HS 03/09/15 09/05/17 Multivitamin/Iron/Folic Acid 1 tab PO DAILY 03/09/15 09/05/17 [Centrum Complete Multivit Tab] Garlic 1 tab PO DAILY 08/31/17 09/05/17 Previous Rx's Medication Instructions Recorded Apixaban [Eliquis] 2.5 mg PO BID #60 tablet 09/02/17 Metoprolol Tartrate [Lopressor] 25 mg PO TID tab 09/02/17 Azithromycin [Zithromax Z-pack] 250 mg PO DIRECTED #6 tab 09/05/17 Ibuprofen 600 mg PO Q6H #30 tab 04/28/19 Ondansetron Odt [Zofran Odt] 4 mg PO Q8HR PRN #12 tab 04/28/19 Allergies Allergy/AdvReac Type Severity Reaction Status Date / Time iodine Allergy Unknown FACE Verified 04/28/19 13:37 SWELLING , RED AND HOT. adhesive tape Allergy Rash/Hives Verified 04/28/19 13:37 Sulfa (Sulfonamide Allergy Rash/Hives Verified 04/28/19 13:37 Antibiotics) Review of Systems ROS Statement: Those systems with pertinent positive or pertinent negative responses have been documented in the HPI. ROS Other: All systems not noted in ROS Statement are negative. 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, past arrythmia/ablation see see ep study note, diverticular disease/past benign colon polyps,palpitations, varicose veins, skin cancer History of Any Multi-Drug Resistant Organisms: None Reported Past Surgical History: Adenoidectomy, Cardiac Ablation, Section, Heart Catheterization With Stent, Tonsillectomy, Tubal Ligation Additional Past Surgical History / Comment(s): tony cataracts, x4, basal cell skin cancer removed,colonoscopy, tony carpal tunnel release Past Anesthesia/Blood Transfusion Reactions: No Reported Reaction Date of Last Stent Placement:: unk Past Psychological History: No Psychological Hx Reported Smoking Status: Never smoker Past Alcohol Use History: None Reported Past Drug Use History: None Reported - Past Family History Mother Family Medical History: Myocardial Infarction ([place]) Additional Family Medical History / Comment(s): pt has 9 siblings almost all of them had afib Father Family Medical History: Coronary Artery Disease (CAD) Additional Family Medical History / Comment(s): heart disease Sister(s) Family Medical History: Cancer (:colon) General Exam - General Exam Comments Initial Comments: 84-year-old female. Alert and oriented 3. No distress. Limitations: no limitations General appearance: alert, in no apparent distress Head exam: Present: atraumatic, normocephalic, normal inspection Eye exam: Present: normal appearance, PERRL, EOMI. Absent: scleral icterus, conjunctival injection, periorbital swelling ENT exam: Present: normal exam Neck exam: Present: normal inspection. Absent: tenderness, meningismus, lymphadenopathy Respiratory exam: Present: normal lung sounds bilaterally. Absent: respiratory distress, wheezes, rales, rhonchi, stridor Cardiovascular Exam: Present: regular rate, normal rhythm, normal heart sounds. Absent: systolic murmur, diastolic murmur, rubs, gallop, clicks GI/Abdominal exam: Present: soft, tenderness (Left lower quadrant tenderness), normal bowel sounds. Absent: distended, guarding, rebound, rigid Extremities exam: Present: normal inspection, full ROM, normal capillary refill. Absent: tenderness, pedal edema, joint swelling, calf tenderness Course Vital Signs 04/28/19 04/28/19 13:37 17:09 Temperature 97.6 F 97.9 F Pulse Rate 85 85 Respiratory 18 18 Rate Blood Pressure 130/81 146/78 O2 Sat by Pulse 99 98 Oximetry Medical Decision Making - Medical Decision Making This patient's a pleasant 84-year-old female presents emergency Department today with left-sided abdominal pain starting at noon today. She denies any associated symptoms with this including changes in stools or nausea or vomiting. Patient reports it does radiate towards her lower back. Labs are reviewed and unremarkable. She has some trace hematuria, no sign of infection. White blood cell count is stable. Chemistry panels were unremarkable. She patient's pain we did do a CT with contrast. This was negative for any acute disease. On reevaluation she is resting comfortably in bed. 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 Discussed Patient in follow-up with her primary care doctor in regards to this. Patient is agreeable to treatment plan will comply. Return parameters were discussed. - Lab Data Result diagrams: 04/28/19 14:02 04/28/19 14:02 Lab Results 04/28/19 04/28/19 04/28/19 Range/Units 14:02 14:02 14:02 WBC 11.2 H (3.8-10.6) k/uL RBC 4.58 (3.80-5.40) m/uL Hgb 13.5 (11.4-16.0) gm/dL Hct 40.4 (34.0-46.0) % MCV 88.3 (80.0-100.0) fL MCH 29.4 (25.0-35.0) pg MCHC 33.3 (31.0-37.0) g/dL RDW 12.6 (11.5-15.5) % Plt Count 244 (150-450) k/uL Neutrophils % 79 % Lymphocytes % 12 % Monocytes % 8 % Eosinophils % 1 % Basophils % 0 % Neutrophils # 8.8 H (1.3-7.7) k/uL Lymphocytes # 1.4 (1.0-4.8) k/uL Monocytes # 0.8 (0-1.0) k/uL Eosinophils # 0.1 (0-0.7) k/uL Basophils # 0.0 (0-0.2) k/uL PT 10.4 (9.0-12.0) sec INR 1.0 (<1.2) APTT 25.1 (22.0-30.0) sec Sodium 133 L (137-145) mmol/L Potassium 4.1 (3.5-5.1) mmol/L Chloride 98 (98-107) mmol/L Carbon Dioxide 26 (22-30) mmol/L Anion Gap 9 mmol/L BUN 13 (7-17) mg/dL Creatinine 0.67 (0.52-1.04) mg/dL Est GFR (CKD-EPI)AfAm >90 (>60 ml/min/1.73 sqM) Est GFR (CKD-EPI)NonAf 82 (>60 ml/min/1.73 sqM) Glucose 101 H (74-99) mg/dL Calcium 9.2 (8.4-10.2) mg/dL Total Bilirubin 0.9 (0.2-1.3) mg/dL AST 27 (14-36) U/L ALT 13 (4-34) U/L Alkaline Phosphatase 165 H (38-126) U/L Total Protein 7.0 (6.3-8.2) g/dL Albumin 3.9 (3.5-5.0) g/dL Amylase 40 (30-110) U/L Lipase 95 (23-300) U/L Urine Color Urine Appearance (Clear) Urine pH (5.0-8.0) Ur Specific [place] (1.001-1.035) Urine Protein (Negative) Urine Glucose (UA) (Negative) Urine Ketones (Negative) Urine Blood (Negative) Urine Nitrite (Negative) Urine Bilirubin (Negative) Urine Urobilinogen (<2.0) mg/dL Ur Leukocyte Esterase (Negative) Urine RBC (0-5) /hpf Urine WBC (0-5) /hpf Ur Squamous Epith Cells (0-4) /hpf Urine Bacteria (None) /hpf Hyaline Casts (0-2) /lpf Urine Mucus (None) /hpf 04/28/19 Range/Units 14:02 WBC (3.8-10.6) k/uL RBC (3.80-5.40) m/uL Hgb (11.4-16.0) gm/dL Hct (34.0-46.0) % MCV (80.0-100.0) fL MCH (25.0-35.0) pg MCHC (31.0-37.0) g/dL RDW (11.5-15.5) % Plt Count (150-450) k/uL Neutrophils % % Lymphocytes % % Monocytes % % Eosinophils % % Basophils % % Neutrophils # (1.3-7.7) k/uL Lymphocytes # (1.0-4.8) k/uL Monocytes # (0-1.0) k/uL Eosinophils # (0-0.7) k/uL Basophils # (0-0.2) k/uL PT (9.0-12.0) sec INR (<1.2) APTT (22.0-30.0) sec Sodium (137-145) mmol/L Potassium (3.5-5.1) mmol/L Chloride (98-107) mmol/L Carbon Dioxide (22-30) mmol/L Anion Gap mmol/L BUN (7-17) mg/dL Creatinine (0.52-1.04) mg/dL Est GFR (CKD-EPI)AfAm (>60 ml/min/1.73 sqM) Est GFR (CKD-EPI)NonAf (>60 ml/min/1.73 sqM) Glucose (74-99) mg/dL Calcium (8.4-10.2) mg/dL Total Bilirubin (0.2-1.3) mg/dL AST (14-36) U/L ALT (4-34) U/L Alkaline Phosphatase (38-126) U/L Total Protein (6.3-8.2) g/dL Albumin (3.5-5.0) g/dL Amylase (30-110) U/L Lipase (23-300) U/L Urine Color Yellow Urine Appearance Clear (Clear) Urine pH 6.0 (5.0-8.0) Ur Specific [place] 1.011 (1.001-1.035) Urine Protein Negative (Negative) Urine Glucose (UA) Negative (Negative) Urine Ketones 1+ H (Negative) Urine Blood Small H (Negative) Urine Nitrite Negative (Negative) Urine Bilirubin Negative (Negative) Urine Urobilinogen <2.0 (<2.0) mg/dL Ur Leukocyte Esterase Negative (Negative) Urine RBC 4 (0-5) /hpf Urine WBC 1 (0-5) /hpf Ur Squamous Epith Cells <1 (0-4) /hpf Urine Bacteria Rare H (None) /hpf Hyaline Casts 3 H (0-2) /lpf Urine Mucus Few H (None) /hpf - Radiology Data Radiology results: report reviewed CT shows no acute intra-abdominal processes identified. Disposition Clinical Impression: Left lateral abdominal pain, Leiomyoma Disposition: HOME SELF-CARE Condition: Good Instructions (If sedation given, give patient instructions): Abdominal Pain (ED) Additional Instructions: Please use medication as discussed. Please follow up with family doctor if symptoms have not improved over the next two days. Please return to the em ergency room if your symptoms increase or worsen or for any other concerns. Prescriptions: Ibuprofen 600 mg PO Q6H #30 tab Ondansetron Odt [Zofran Odt] 4 mg PO Q8HR PRN #12 tab PRN Reason: Nausea Is patient prescribed a controlled substance at d/c from ED?: No Referrals: Remy Oswald DO [Primary Care Provider] - 1-2 days Time of Disposition: 17:03
[2019-04-28 15:12] LABS: Basophils % (A) 0 %; Eosinophils # (A) 0.1 k/uL (0-0.7); Eosinophils % (A) 1 %; HCT 40.4 % (34.0-46.0); HGB 13.5 gm/dL (11.4-16.0); Lymphocytes # (A) 1.4 k/uL (1.0-4.8); Lymphocytes % (A) 12 %; MCH 29.4 pg (25.0-35.0); MCHC 33.3 g/dL (31.0-37.0); MCV 88.3 fL (80.0-100.0); Mean Platelet Volume 8.6; Monocytes # (A) 0.8 k/uL (0-1.0); Monocytes % (A) 8 %; Neutrophils # (A) 8.8 k/uL (1.3-7.7); Neutrophils % (A) 79 %; Platelet Count 244 k/uL (150-450); RBC 4.58 m/uL (3.80-5.40); RDW 12.6 % (11.5-15.5); WBC 11.2 k/uL (3.8-10.6)
[2019-04-28 15:19] LABS: Appearance,Urine Clear (Clear); Bacteria,Urine Rare /hpf; Bilirubin,Urine Negative (Negative); Blood,Urine Small (Negative); Color,Urine Yellow; Glucose,Urine (UA) Negative (Negative); Hyaline Casts,Urine 3 /lpf (0-2); Ketones,Urine 1+ (Negative); Leukocyte Esterase,Urine Negative (Negative); Mucus,Urine Few /hpf; Nitrite,Urine Negative (Negative); Protein,Urine Negative (Negative); RBC,Urine 4 /hpf (0-5); Specific Gravity,Urine 1.011 (1.001-1.035); Squamous Epithelial Cell,Urine <1 /hpf (0-4); Urobilinogen,Urine <2.0 mg/dL (<2.0); WBC,Urine 1 /hpf (0-5)
[2019-04-28 15:21] LABS: ALT 13 U/L (4-34); AST 27 U/L (14-36); African American GFR (CKD) >90 (>60 ml/min/1.73 sqM); Albumin 3.9 g/dL (3.5-5.0); Alkaline Phosphatase 165 U/L (38-126); Amylase 40 U/L (30-110); Anion Gap 9 mmol/L; Blood Urea Nitrogen 13 mg/dL (7-17); Calcium 9.2 mg/dL (8.4-10.2); Carbon Dioxide 26 mmol/L (22-30); Chloride 98 mmol/L (98-107); Glucose 101 mg/dL (74-99); Non-African American GFR(CKD) 82 (>60 ml/min/1.73 sqM); Potassium 4.1 mmol/L (3.5-5.1); Sodium 133 mmol/L (137-145); Total Bilirubin 0.9 mg/dL (0.2-1.3)
[2019-04-28 15:27] LABS: Partial Thromboplastin Time 25.1 sec (22.0-30.0); Prothrombin Time 10.4 sec (9.0-12.0)
[2019-04-28] MEDS ORDERED: methylPREDNISolone SOD SUCCI 125 MG/2 ML VIAL IV STA (15:31)
[2019-04-28] MEDS ORDERED: diphenhydrAMINE 50 MG/ML 1 ML VIAL IVP STA (15:31)
[2019-04-28] MEDS ORDERED: FAMOTIDINE 20 MG/2 ML VIAL IV STA (15:31)
--- NOTE | 2019-04-28 16:25 | CT ---
EXAMINATION TYPE: CT abdomen pelvis w con DATE OF EXAM: 04/28/2019 COMPARISON: None HISTORY: Left lower quadrant pain. CT DLP: 1090.7 mGycm CONTRAST: CT scan of the abdomen and pelvis is performed without Oral Contrast and with IV Contrast, patient in jected with 100 mL of Isovue 300. FINDINGS: LUNG BASES-: No visible nodule. No infiltrate. LIVER/GB: No calcified gallstones. No space occupying hepatic lesion. Biliary tree is of normal ca liber. PANCREAS: No inflammation. No distinct mass. SPLEEN: No splenic enlargement. No lesion seen. ADRENALS: No nodule. No thickening. KIDNEYS/BLADDER: No hydronephrosis. No nephrolithiasis. Renal cystic changes noted. Urinary bladder grossly unremarkable. BOWEL: Normal appendix. Normal bowel caliber. No inflammation. 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 LYMPH NODES: No greater than 1cm abdominal or pelvic lymph nodes are appreciated. AORTA: No significant abnormality. OSSEOUS STRUCTURES: No significant abnormality is seen. OTHER: No significant additional abnormality is seen. IMPRESSION: 1. No acute intra-abdominal process identified.
[2019-04-28 17:12] VITALS: BP 146/78; TEMP 97.9
== END 2019-04-28 17:12 | disposition home or self-care (01) ==
LOC: EC 13:32
DX: R10.30 Lower abdominal pain, unspecified (principal); D21.9 Benign neoplasm of connective and other soft tissue, unspecified; I10 Essential (primary) hypertension; E78.5 Hyperlipidemia, unspecified; Z79.82 Long term (current) use of aspirin; Z79.899 Other long term (current) drug therapy; Z91.048 Other nonmedicinal substance allergy status; Z88.2 Allergy status to sulfonamides; Z95.5 Presence of coronary angioplasty implant and graft; Z85.828 Personal history of other malignant neoplasm of skin
CPT/HCPCS: 99284 ×2; 96374 ×2; 96375 ×6; 96361 ×3; 36415; 80053; 82150; 83690; 85025; 85610; 85730; 81001; 74177; J2270; J1200; J2930; J2405; J1885; Q9967

== ENCOUNTER 2019-05-01 09:27 | Emergency (ER) | payer MEDICARE ==
[2019-05-01 09:35] VITALS: BP 145/66; PULSE 67; RESP 18; TEMP 97.4
--- NOTE | 2019-05-01 10:12 | ED ---
Recheck HPI - General Chief Complaint: Recheck/Abnormal Lab/Rx Stated Complaint: Abnormal labs Time Seen by Provider: 05/01/19 09:35 Source: patient Mode of arrival: wheelchair Limitations: no limitations - History of Present Illness Initial Comments: Patient is an 84-year-old female, with HTN, presenting to emergency Department for a recheck of her urine. Patient states she was in the ER approximately 3 days ago for abdominal pain and had a full workup. She states there was no acute findings and that her urine at the time was normal. Patient states she received a call from her doctor's office stating that she should go back to the ER for a check on her urine. Patient states she is no longer have an abdominal pain although she does have some mild discomfort last night. She denies fever, chills, nausea, vomiting, dysuria, chest pain. She has no complaints at this time. Upon arrival to the ER her vital signs are stable. - Related Data Home Medications Medication Instructions Recorded Confirmed Aspirin EC [Ecotrin Low Dose] 81 mg PO HS 03/09/15 05/01/19 Atorvastatin [Lipitor] 10 mg PO HS 03/09/15 05/01/19 Multivitamin/Iron/Folic Acid 1 tab PO DAILY 03/09/15 05/01/19 [Centrum Complete Multivit Tab] Fish Oil/Dha/Epa [Fish Oil 1,200 1 cap PO DAILY 05/01/19 05/01/19 mg Fish Oil] Flecainide [Tambocor] 50 mg PO BID 05/01/19 05/01/19 Ibuprofen 600 mg PO Q6H PRN 05/01/19 05/01/19 Previous Rx's Medication Instructions Recorded Apixaban [Eliquis] 2.5 mg PO BID #60 tablet 09/02/17 Metoprolol Tartrate [Lopressor] 25 mg PO TID tab 09/02/17 Ondansetron Odt [Zofran Odt] 4 mg PO Q8HR PRN #12 tab 04/28/19 Allergies Allergy/AdvReac Type Severity Reaction Status Date / Time iodine Allergy Unknown FACE Verified 05/01/19 09:35 SWELLING , RED AND HOT. adhesive tape Allergy Rash/Hives Verified 05/01/19 09:35 Sulfa (Sulfonamide Allergy Rash/Hives Verified 05/01/19 09:35 Antibiotics) Review of Systems ROS Statement: Those systems with pertinent positive or pertinent negative responses have been documented in the HPI. ROS Other: All systems not noted in ROS Statement are negative. 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, past arrythmia/ablation see see ep study note, diverticular disease/past benign colon polyps,palpitations, varicose veins, skin cancer History of Any Multi-Drug Resistant Organisms: None Reported Past Surgical History: Adenoidectomy, Cardiac Ablation, Section, Heart Catheterization With Stent, Tonsillectomy, Tubal Ligation Additional Past Surgical History / Comment(s): tony cataracts, x4, basal cell skin cancer removed,colonoscopy, tony carpal tunnel release Past Anesthesia/Blood Transfusion Reactions: No Reported Reaction Date of Last Stent Placement:: unk Past Psychological History: No Psychological Hx Reported Smoking Status: Never smoker Past Alcohol Use History: None Reported Past Drug Use History: None Reported - Past Family History Mother Family Medical History: Myocardial Infarction ([place]) Additional Family Medical History / Comment(s): pt has 9 siblings almost all of them had afib Father Family Medical History: Coronary Artery Disease (CAD) Additional Family Medical History / Comment(s): heart disease Sister(s) Family Medical History: Cancer (:colon) General Exam - General Exam Comments Initial Comments: GENERAL: Well-appearing, well-nourished and in no acute distress. HEAD: Atraumatic, normocephalic. EYES: Pupils equal round and reactive to light, extraocular movements intact, sclera anicteric, conjunctiva are normal. ENT: TMs normal, nares patent, oropharynx clear without exudates. Moist mucous membranes. NECK: Normal range of motion, supple without lymphadenopathy or JVD. LUNGS: Breath sounds clear to auscultation bilaterally and equal. No wheezes rales or rhonchi. HEART: Regular rate and rhythm without murmurs, rubs or gallops. ABDOMEN: Soft, nontender, normoactive bowel sounds. No guarding, no rebound. No masses appreciated. : Deferred EXTREMITIES: Normal range of motion, no pitting or edema. No clubbing or cyanosis. NEUROLOGICAL: Normal speech, normal gait. PSYCH: Normal mood, normal affect. SKIN: Warm, Dry, normal turgor, no rashes or lesions noted. Limitations: no limitations Course Vital Signs 05/01/19 09:31 Temperature 97.4 F L Pulse Rate 67 Respiratory 18 Rate Blood Pressure 145/66 O2 Sat by Pulse 98 Oximetry Medical Decision Making - Medical Decision Making Patient is an 84-year-old female presenting for a recheck of her urine. Vitals are stable. Patient has no complaints today. UA today reveals no acute abnormalities. I discussed this with the patient. Patient wishes urine to be sent for urine culture. This is pending at this time. Patient stable for discharge. Patient will follow up with her PCP. Return parameters were discussed with the patient she verbalized understanding. - Lab Data Lab Results 05/01/19 Range/Units 09:40 Urine Color Light Yellow Urine Appearance Clear (Clear) Urine pH 6.0 (5.0-8.0) Ur Specific [place] 1.009 (1.001-1.035) Urine Protein Negative (Negative) Urine Glucose (UA) Negative (Negative) Urine Ketones Negative (Negative) Urine Blood Small (Negative) Urine Nitrite Negative (Negative) Urine Bilirubin Negative (Negative) Urine Urobilinogen <2.0 (<2.0) mg/dL Ur Leukocyte Esterase Moderate H (Negative) Urine RBC 3 (0-5) /hpf Urine WBC 5 (0-5) /hpf Ur Squamous Epith Cells 1 (0-4) /hpf Urine Bacteria Rare H (None) /hpf Disposition Clinical Impression: Urine abnormality Disposition: HOME SELF-CARE Condition: Stable Instructions (If sedation given, give patient instructions): Normal Exam (ED) Additional Instructions: Please return to the Emergency Department if symptoms worsen or any other concerns. Follow up with PCP as needed. Is patient prescribed a controlled substance at d/c from ED?: No Referrals: Remy Oswald DO [Primary Care Provider] - 1-2 days
[2019-05-01 10:45] LABS: Appearance,Urine Clear (Clear); Color,Urine Light Yellow; Specific Gravity,Urine 1.009 (1.001-1.035)
[2019-05-01 10:46] LABS: Bilirubin,Urine Negative (Negative); Glucose,Urine (UA) Negative (Negative); Ketones,Urine Negative (Negative); Protein,Urine Negative (Negative)
[2019-05-01 10:49] LABS: Blood,Urine Small (Negative)
[2019-05-01 10:51] LABS: Nitrite,Urine Negative (Negative); Urobilinogen,Urine <2.0 mg/dL (<2.0)
[2019-05-01 10:52] LABS: Leukocyte Esterase,Urine Moderate (Negative); RBC,Urine 3 /hpf (0-5); Squamous Epithelial Cell,Urine 1 /hpf (0-4); WBC,Urine 5 /hpf (0-5)
[2019-05-01 10:53] LABS: Bacteria,Urine Rare /hpf
== END 2019-05-01 11:05 | disposition home or self-care (01) ==
LOC: EC 09:27
DX: R82.90 Unspecified abnormal findings in urine (principal); E78.5 Hyperlipidemia, unspecified; I10 Essential (primary) hypertension; M19.90 Unspecified osteoarthritis, unspecified site; H91.90 Unspecified hearing loss, unspecified ear; Z88.2 Allergy status to sulfonamides; Z91.048 Other nonmedicinal substance allergy status; Z79.82 Long term (current) use of aspirin; Z79.899 Other long term (current) drug therapy; Z85.828 Personal history of other malignant neoplasm of skin; Z97.4 Presence of external hearing-aid; Z98.890 Other specified postprocedural states
CPT/HCPCS: 81001; 99283

== ENCOUNTER 2019-05-05 04:48 | Emergency (ER) | payer MEDICARE ==
[2019-05-05 05:00] VITALS: TEMP 97.5
[2019-05-05] MEDS ORDERED: MORPHINE SULFATE 4 MG/ML SYRINGE IVP STA (05:15)
[2019-05-05] MEDS ORDERED: ORPHENADRINE 30 MG/ML 2 ML VIAL IM STA (05:15)
--- NOTE | 2019-05-05 05:35 | ED ---
General Adult HPI - General Chief complaint: Back Pain/Injury Stated complaint: Lft Flank Pain Time Seen by Provider: 05/05/19 04:57 Source: patient, EMS Mode of arrival: EMS Limitations: no limitations - History of Present Illness Initial comments: Susan is a pleasant 84-year-old female presents the ER today for evaluation of pain in her left buttock that radiates down her left leg. Patient denies any recent injuries falls or slipped some ice. She states that she has chronic back pain secondary to rheumatoid arthritis however this is different. Patient reports that she's developed a aching pain in the single point in her left buttock and that with certain movements she has radiation of pain down her left leg to her knee. Patient fevers. Patient reports she has never experienced pain similar to this in the past. She's tried laying in different positions with no improvement which prompted her to come to the ER this morning. She denies any fevers chills nausea vomiting chest pain palpitation shortness breath. She reports she's otherwise in her usual state of health besides this pain. - Related Data Home Medications Medication Instructions Recorded Confirmed Aspirin EC [Ecotrin Low Dose] 81 mg PO HS 03/09/15 05/01/19 Atorvastatin [Lipitor] 10 mg PO HS 03/09/15 05/01/19 Multivitamin/Iron/Folic Acid 1 tab PO DAILY 03/09/15 05/01/19 [Centrum Complete Multivit Tab] Fish Oil/Dha/Epa [Fish Oil 1,200 1 cap PO DAILY 05/01/19 05/01/19 mg Fish Oil] Flecainide [Tambocor] 50 mg PO BID 05/01/19 05/01/19 Ibuprofen 600 mg PO Q6H PRN 05/01/19 05/01/19 Previous Rx's Medication Instructions Recorded Apixaban [Eliquis] 2.5 mg PO BID #60 tablet 09/02/17 Metoprolol Tartrate [Lopressor] 25 mg PO TID tab 09/02/17 Ondansetron Odt [Zofran Odt] 4 mg PO Q8HR PRN #12 tab 04/28/19 Lidocaine 5% Patch [Lidoderm] 1 patch TOPICAL DAILY #30 patch 05/05/19 Orphenadrine [Norflex] 100 mg PO Q12H #28 tablet.er 05/05/19 Allergies Allergy/AdvReac Type Severity Reaction Status Date / Time iodine Allergy Unknown FACE Verified 05/05/19 05:00 SWELLING , RED AND HOT. adhesive tape Allergy Rash/Hives Verified 05/05/19 05:00 Sulfa (Sulfonamide Allergy Rash/Hives Verified 05/05/19 05:00 Antibiotics) Review of Systems ROS Statement: Those systems with pertinent positive or pertinent negative responses have been documented in the HPI. ROS Other: All systems not noted in ROS Statement are negative. 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, past arrythmia/ablation see see ep study note, diverticular disease/past benign colon polyps,palpitations, varicose veins, skin cancer History of Any Multi-Drug Resistant Organisms: None Reported Past Surgical History: Adenoidectomy, Cardiac Ablation, Section, Heart Catheterization With Stent, Tonsillectomy, Tubal Ligation Additional Past Surgical History / Comment(s): tony cataracts, x4, basal cell skin cancer removed,colonoscopy, tony carpal tunnel release Past Anesthesia/Blood Transfusion Reactions: No Reported Reaction Date of Last Stent Placement:: unk Past Psychological History: No Psychological Hx Reported Smoking Status: Never smoker Past Alcohol Use History: None Reported Past Drug Use History: None Reported - Past Family History Mother Family Medical History: Myocardial Infarction ([place]) Additional Family Medical History / Comment(s): pt has 9 siblings almost all of them had afib Father Family Medical History: Coronary Artery Disease (CAD) Additional Family Medical History / Comment(s): heart disease Sister(s) Family Medical History: Cancer (:colon) General Exam - General Exam Comments Initial Comments: Physical Exam GENERAL: Patient is well-developed and well-nourished. Patient is nontoxic and well- hydrated and is in no distress. HENT: Normocephalic, Atraumatic. EYES: PERRL, EOMI PULMONARY: Unlabored respirations. No audible rales rhonchi or wheezing was noted. CARDIOVASCULAR: There is a regular rate and rhythm without any murmurs gallops or rubs. ABDOMEN: Soft and nontender with normal bowel sounds. SKIN: Skin is clear with no lesions or rashes and otherwise unremarkable. : Deferred NEUROLOGIC: Patient is alert and oriented x3. Moving all extremities spontaneously MUSCULOSKELETAL: This point tenderness in the left buttock, palpation of which can mimic sciatic pain, flank tenderness is over the piriformis muscle. There is no rash or injury. No decubitus ulcers. PSYCHIATRIC: Normal psychiatric evaluation. Limitations: no limitations Course Vital Signs 05/05/19 05/05/19 04:57 06:03 Temperature 97.5 F L Pulse Rate 83 84 Respiratory 20 16 Rate Blood Pressure 159/95 144/74 O2 Sat by Pulse 100 96 Oximetry Medical Decision Making - Medical Decision Making Patient was seen and evaluated history was obtained from the patient History and physical exam are concerning for a musculoskeletal discomfort which causing sciatica. Patient having exacerbation of her low back pain. She has no weakness in lower extremities no trouble walking no loss of bowel or bladder continence. Patient was treated with morphine and IM Norflex She was reevaluated one hour after receiving medications reported significant improvement in her discomfort. This time patient's temporal plan for discharge home with by mouth Norflex, Lidoderm patches with the plan to follow up with her primary care doctor for possible referral to physical therapy. All questions pertaining return parameters were discussed patient's discharged with stable condition.. Disposition Clinical Impression: Sciatic leg pain Disposition: HOME SELF-CARE Condition: Stable Instructions (If sedation given, give patient instructions): Piriformis Syndrome (ED) Prescriptions: Lidocaine 5% Patch [Lidoderm] 1 patch TOPICAL DAILY #30 patch Orphenadrine [Norflex] 100 mg PO Q12H #28 tablet.er Is patient prescribed a controlled substance at d/c from ED?: No Referrals: Remy Oswald DO [Primary Care Provider] - 1-2 days
[2019-05-05 06:04] VITALS: BP 144/74; PULSE 84; RESP 16
== END 2019-05-05 06:44 | disposition home or self-care (01) ==
LOC: EC 04:48
DX: M54.42 Lumbago with sciatica, left side (principal); G89.29 Other chronic pain; M06.9 Rheumatoid arthritis, unspecified; I10 Essential (primary) hypertension; E78.5 Hyperlipidemia, unspecified; Z79.82 Long term (current) use of aspirin; Z79.899 Other long term (current) drug therapy; Z88.2 Allergy status to sulfonamides; Z91.048 Other nonmedicinal substance allergy status; Z95.5 Presence of coronary angioplasty implant and graft; Z85.828 Personal history of other malignant neoplasm of skin
CPT/HCPCS: 99283; 96374; 96372; J2270; J2360

== ENCOUNTER → 2021-09-15 | Outpatient (CLI) | payer MEDICARE ==
--- NOTE | 2021-09-16 05:06 | MR ---
EXAMINATION TYPE: MR hip RT wo con DATE OF EXAM: 09/15/2021 COMPARISON: HISTORY: No prior, pt has dementia unable to obtain history other than right hip/ leg pain from facia l expressions Multiplanar multi echo imaging of the pelvis and right hip without contrast. There is severe narrowing of the right hip joint space with spur formation of the acetabulum and the femoral head. There is irregular increased signal in the intertrochanteric femur consistent with nond isplaced intratrochanteric fracture. The pelvic ring is intact. Proximal left femur and hip joint are intact. There is mild left hip joint space narrowing. No free fluid in the pelvis. The bladder distends smoothly. No pelvic mass. IMPRESSION: There is evidence of nondisplaced intertrochanteric fracture right femur. There is moderately severe osteoarthritis in the right hip joint.
--- NOTE | 2021-09-16 05:11 | MR ---
EXAMINATION TYPE: MR femur/thigh RT wo con DATE OF EXAM: 09/15/2021 COMPARISON: None HISTORY: No prior, pt has dementia unable to obtain history other than right hip/ leg pain from facia l expres Multiplanar multiecho imaging of the right femur with no contrast. There is irregular somewhat linear increased signal on the STIR images through the intertrochanteric right femur and consistent with nondisplaced fracture. There is severe narrowing of the right hip joel nt space. The mid and distal right femur appear intact. No evidence of a soft tissue mass. The knee j oint is not included on the exam. There is some mild linear fluid along the lateral aspect of the mus cles of the right thigh. This could relate to some bruising. No evidence of any significant right hip joint effusion. IMPRESSION: Nondisplaced intertrochanteric fracture right femur. Severe osteoarthritis in the right hip joint.
== END | disposition home or self-care (01) ==
LOC: EEVIPCON 09:15 → RADMRIMAIN 09:22
PROVIDERS: ATTEND Internal Medicine
DX: S72.144A Nondisplaced intertrochanteric fracture of right femur, initial encounter for closed fracture (principal); M16.11 Unilateral primary osteoarthritis, right hip